=== PATIENT | female | born 1950 | race Caucasian/White ===

== ENCOUNTER 2024-08-08 10:51 | Emergency (ER) | payer MEDICARE, OTHER, SELFPAY ==
[2024-08-08 11:03] VITALS: BP 171/77
--- NOTE | 2024-08-08 11:52 | ED.GENMED ---
History of Present Illness
<DO Ankit Cruz Filed: 08/08/24 13:18>
General
Chief Complaint: Musculo-Skeletal Complaint
Source: patient
Time Seen by Provider: 08/08/24 11:40
History of Present Illness
History of Present Illness:
73-year-old female presents emergency room complaining primarily of pain in her left lower abdomen rating to her back. Patient states that she also has a history of chronic neck and back pain. She really has exacerbations of both the back and neck
pain at the same time. She sees a chiropractor for this. Patient decided to come to the emergency room today because she also has pain in her left lower abdomen which is atypical. She is not sure if this is just a byproduct of her back issues or
of reflux and new disease. She denies any fever, chills, nausea, vomiting, diarrhea or constipation. No dysuria or frequency.
Phy Exam
<DO Ankit Cruz Last Filed: 08/08/24 13:18>
Physical Exam
Physical Exam:
General: Awake, Alert, Oriented X3. No acute distress.
Vitals: unremarkable
Head: Atraumatic
Eyes: Pupils equal, EOMI
Throat: Airway intact, no exudates
Neck: Trachea midline
Lungs: Clear and equal b/l
Heart: Regular rate, no murmurs
Abd: Soft, tender to palpation left lower quadrant, No pulsatile mass
Neuro: Nonfocal
Skin: Warm, dry, no rash
Extremities: pulses equal b/l, no edema
Course
<DO Ankit Cruz Last Filed: 08/08/24 13:18>
Orders/Labs/Results
Orders:
Orders
08/08/24 11:08
Electrocardiogram (*1) Urgent
Reason for Study: Other
Other Reason for Exam: left neck pain
EKG- Treatment ONCE
08/08/24 11:50
CT Abd/Pel (IV only)-[facility] only Urgent
Comment:
Reason For Exam: llq abd pain
Ketorolac [Toradol] 15 mg IV NOW STA
08/08/24 12:16
Basic Metabolic Panel Urgent
Complete Blood Count/With Diff Urgent
08/08/24 12:31
Urinalysis Reflex To Culture Urgent
Date Specimen was Collected: 08/08/24
Time Specimen was Collected: 12:30
Abnormal Lab Results
08/08/24 08/08/24
12:16 12:31
WBC 10.9 H 10^3/uL
(4.8-10.8)
Abs Immat Gran (auto) 0.1 H 10^3/uL
(0-0.05)
Absolute Neuts (auto) 8.4 H 10^3/uL
(1.4-6.5)
Absolute Monos (auto) 0.8 H 10^3/uL
(0.1-0.6)
Neutrophils % 77.1 H %
(42.2-75.2)
Lymphocytes % 14.2 L %
(20.5-51.1)
BUN 26 H mg/dl
(7-17)
Urine Ketones Trace A
(Negative)
08/08/24 12:16
08/08/24 12:16
Vital Signs
Initial and Last Documented VS:
Initial Vital Signs
Temp Pulse Resp BP Pulse Ox
98.5 F 63 18 171/77 96
08/08/24 11:03 08/08/24 11:03 08/08/24 11:03 08/08/24 11:03 08/08/24 11:03
Last Documented Vital Signs
Temp Pulse Resp BP Pulse Ox
98.5 F 65 18 129/45 99
08/08/24 11:03 08/08/24 13:32 08/08/24 13:32 08/08/24 13:32 08/08/24 13:32
<Tyler Mcpherson, DO - Last Filed: 08/08/24 14:05>
Orders/Labs/Results
Orders:
Orders
08/08/24 11:08
Electrocardiogram (*1) Urgent
Reason for Study: Other
Other Reason for Exam: left neck pain
EKG- Treatment ONCE
08/08/24 11:50
CT Abd/Pel (IV only)-[facility] only Urgent
Comment:
Reason For Exam: llq abd pain
Ketorolac [Toradol] 15 mg IV NOW STA
08/08/24 12:16
Basic Metabolic Panel Urgent
Complete Blood Count/With Diff Urgent
08/08/24 12:31
Urinalysis Reflex To Culture Urgent
Date Specimen was Collected: 08/08/24
Time Specimen was Collected: 12:30
Abnormal Lab Results
08/08/24 08/08/24
12:16 12:31
WBC 10.9 H 10^3/uL
(4.8-10.8)
Abs Immat Gran (auto) 0.1 H 10^3/uL
(0-0.05)
Absolute Neuts (auto) 8.4 H 10^3/uL
(1.4-6.5)
Absolute Monos (auto) 0.8 H 10^3/uL
(0.1-0.6)
Neutrophils % 77.1 H %
(42.2-75.2)
Lymphocytes % 14.2 L %
(20.5-51.1)
BUN 26 H mg/dl
(7-17)
Urine Ketones Trace A
(Negative)
08/08/24 12:16
08/08/24 12:16
Vital Signs
Initial and Last Documented VS:
Initial Vital Signs
Temp Pulse Resp BP Pulse Ox
98.5 F 63 18 171/77 96
08/08/24 11:03 08/08/24 11:03 08/08/24 11:03 08/08/24 11:03 08/08/24 11:03
Last Documented Vital Signs
Temp Pulse Resp BP Pulse Ox
98.5 F 65 18 129/45 99
08/08/24 11:03 08/08/24 13:32 08/08/24 13:32 08/08/24 13:32 08/08/24 13:32
<Tyler Mcpherosn, DO - Last Filed: 08/08/24 14:05>
*Critical Care Note
Total Time (30-74mins, 75-104mins- exclusive of procedures): Not Applicable
<Tyler Mcpherson, DO - Last Filed: 08/08/24 14:05>
Update Note
Update Note:
2 PM care patient was position pending CT of left lower quadrant abdominal pain. CT shows concern for early diverticulitis. On exam, she is well-appearing nontoxic feels comfortable going home. Will start Augmentin. I gave her printout of the CT
and we discussed the incidental findings and discussed outpatient MRI.
ED Attending Note
<Gilles Mark, DO - Last Filed: 08/08/24 13:18>
-
Portions of this chart may have been created with voice recognition software.� Occasional wrong word or��sound alike� substitutions may have occurred due to the inherent limitations of voice recognition software.
Discharge Plan
Departure
Patient Disposition: Home (Routine Discharge)
Date of Disposition: 08/08/24
Time of Disposition: 14:03
Patient with high blood pressure during this ER visit?: No
Condition: Good
Discharge Problem:
Low back pain, Diverticulitis
Instructions: Low back pain in adults, Diverticulitis (DC)
Prescriptions:
New
amoxicillin-pot clavulanate 875-125 mg tablet
1 tab PO BID Qty: 20 0RF
Referrals:
Jacqueline Oakes MD [Family Provider] -
Activity Restrictions/Additional Instructions:
Please return for any worsening symptoms.
You may return at any time if you have further concerns.
Please follow up with your doctor at the first available appointment, preferably this week.
Please bring the CT report to your doctor to discuss the incidental findings.
Thank you for choosing [facility].
Interventions
Interventions:
*Risk Screen - Suicide Last Done: 08/08/24 11:04
*General Assessment Last Done: 08/08/24 11:04
*Neglect/Abuse Screening Last Done: 08/08/24 12:23
*ED COVID-19 Vaccine History Last Done: 08/08/24 11:04
ED-Musculoskeletal Assessment Last Done: 08/08/24 12:23
Discharge Date and Time
Print Language: CHINESE
[2024-08-08] MEDS: TORADOL 15 MG IV (12:14)
[2024-08-08 12:30] LABS: % Basophils 0.7 % (0-2); % Eosinophils 0.6 % (0-6); % Immature Granulocytes 0.5 % (0-0.5); % Lymphocytes 14.2 % (20.5-51.1); % Monocytes 6.9 % (1.7-9.3); % Neutrophils 77.1 % (42.2-75.2); Absolute Basophils 0.1 10^3/uL (0-0.2); Absolute Eosinophils 0.1 10^3/uL (0-0.7); Absolute Immature Granulocytes 0.1 10^3/uL (0-0.05); Absolute Lymphocytes 1.6 10^3/uL (1.2-3.4); Absolute Monocytes 0.8 10^3/uL (0.1-0.6); Absolute Neutrophils 8.4 10^3/uL (1.4-6.5); Hemoglobin 13.3 g/dL (12.0-16.0); Mean Corp Hgb Conc. 33.3 g/dL (33.0-37.0); Mean Corpuscular Hgb 28.5 pg (27.0-31.0); Mean Corpuscular Volume 85.7 fL (81.0-99.0); Mean Platelet Volume 9.5 fL (7.4-10.4); Nucleated Red Blood Cells % 0 %; Platelet Count 323 10^3/uL (130-400); Red Blood Cell Count 4.67 10^6/uL (4.20-5.40); Red Cell Dist. Width 14.2 % (11.5-14.5); White Blood Cell Count 10.9 10^3/uL (4.8-10.8)
[2024-08-08 12:39] LABS: Urine Albumin Negative (Neg - Trace); Urine Bilirubin Negative (Negative); Urine Character Clear (Clear); Urine Color Yellow; Urine Glucose Negative (Negative); Urine Ketone Trace (Negative); Urine Leukocyte Negative (Negative); Urine Nitrite Negative (Negative); Urine Occult Blood Negative (Negative); Urine Urobilinogen Negative (Neg - 1+)
[2024-08-08 12:50] LABS: Blood Urea Nitrogen 26 mg/dl (7-17); Calcium 10.2 mg/dl (8.4-10.2); Carbon Dioxide 25 mmol/L (22-30); Chloride 100 mmol/L (98-107); Glucose 88 mg/dl (70-99); Sodium 140 mmol/L (135-145); eGFR > 60.00
[2024-08-08 13:32] VITALS: BP 129/45
[2024-08-08] MEDS: AUGMENTIN 875 MG/125 MG 1 TABLET PO (14:26)
== END 2024-08-08 14:25 | disposition home or self-care (01) ==
LOC: EMR 10:51
PROVIDERS: EMERGENCY PHYSICIAN Emergency Medicine; FAMILY PHYSICIAN Internal Medicine
DX: K57.32 Diverticulitis of large intestine without perforation or abscess without bleeding (principal); M54.50 Low back pain, unspecified
CPT/HCPCS: 99285; 96374; 74177; 80048; 81003; 85025; 93005; Q9967

== ENCOUNTER → 2024-09-04 09:43 | Outpatient (REF) | payer MEDICARE, OTHER, SELFPAY | LOC: PAVMRI 09:43 | PROVIDERS: ATTENDING PHYSICIAN Physician Assistant; FAMILY PHYSICIAN Internal Medicine | DX: M54.16 Radiculopathy, lumbar region (principal) | CPT/HCPCS: 72148 ==

== ENCOUNTER → 2025-04-09 17:05 | Outpatient (REF) | payer MEDICARE, OTHER, SELFPAY | LOC: RAD 17:05 | PROVIDERS: ATTENDING PHYSICIAN Orthopaedic Surgery | DX: M79.661 Pain in right lower leg (principal) | CPT/HCPCS: 93971 ==

== ENCOUNTER → 2025-05-15 10:55 | Outpatient (REF) | payer MEDICARE, OTHER, SELFPAY ==
[2025-05-15 11:56] LABS: Hematocrit 40.4 % (37.0-47.0); Hemoglobin 13.2 g/dL (12.0-16.0); Mean Corp Hgb Conc. 32.7 g/dL (33.0-37.0); Mean Corpuscular Volume 85.4 fL (81.0-99.0); Nucleated Red Blood Cells % 0 %; Platelet Count 343 10^3/uL (130-400); Red Cell Dist. Width 14.8 % (11.5-14.5)
[2025-05-15 12:40] LABS: Blood Urea Nitrogen 34 mg/dl (7-17); Calcium 10.0 mg/dl (8.4-10.2); Carbon Dioxide 26 mmol/L (22-30); Chloride 104 mmol/L (98-107); Glucose 91 mg/dl (70-99); Potassium 4.4 mmol/L (3.5-5.1); Sodium 137 mmol/L (135-145); eGFR > 60.00
== END ==
LOC: REG 10:55
PROVIDERS: ATTENDING PHYSICIAN Orthopaedic Surgery; FAMILY PHYSICIAN Internal Medicine
DX: Z01.818 Encounter for other preprocedural examination (principal)
CPT/HCPCS: 36415; 80048; 85025; 93005